=== PATIENT | male | born 1995 | race African-American/Black ===

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

== ENCOUNTER 2017-05-30 16:48 | Emergency (ER) | payer SELFPAY | END 2017-05-30 17:38 | disposition home or self-care (01) | LOC: ER 16:48 | DX: M77.51 Other enthesopathy of right foot and ankle (principal) | CPT/HCPCS: 99282 ==

== ENCOUNTER 2018-05-13 10:25 | Emergency (ER) | payer SELFPAY ==
[~2018-05-13] VITALS: Ht 172.7 cm; Wt 69.9 kg
[2018-05-13 10:25] VITALS: BP 164/85
[~2018-05-13 10:25] MED LIST: IBUP-1060 PO; NAPR500T8 PO
[2018-05-13] MEDS ORDERED: NAPROXEN 500 MG TABLET PO STA (10:40)
[2018-05-13] MEDS ORDERED: HYDROcodone/APAP 5/325MG 1 TAB TABLET PO ONE (10:45)
--- NOTE | 2018-05-13 11:16 | RAD ---
EXAM: AP, lateral and lumbosacral spot views of the lumbar spine DATE: 05/13/2018 10:44 AM INDICATION: CHRONIC LBP. INCREASED PAIN AFTER PLAYING BASKETBALL X1 DAY AGO COMPARISON: No Prior FINDINGS: Straightening of the normal lumbar lordosis. No spondylolisthesis. Vertebral body heights are preserved. Intervertebral disc heights are preserved. IMPRESSION: No evidence for acute fracture or subluxation. Electronically signed by: Clarence Breen MD (05/13/2018 11:12 AM) [facility]
--- NOTE | 2018-05-13 11:23 | PHYS DOC ---
Past Medical History Past Medical History: No Pertinent History Past Surgical History: No Surgical History Alcohol Use: None Drug Use: None Adult General Chief Complaint Chief Complaint: BACK PAIN OR INJURY HPI HPI Patient is a 23 year old male with a remote history of chronic low back pain who presents today complaining of bilateral 8 out of 10 sharp intermittent low back pain that began yesterday. Patient states he was playing basketball yesterday and during a layup he heard a snap sound from his low back. Patient denies falling. Denies any loss of bowel bladder function. Denies any pain radiating to bilateral lower extremities. Denies any loss of bowel bladder function. Review of Systems Review of Systems Constitutional: Denies fever or chills [] GI: Denies abdominal pain, nausea, vomiting, bloody stools or diarrhea [] : Denies dysuria or hematuria [] Musculoskeletal: Reports low back pain Integument: Denies rash or skin lesions [] Neurologic: Denies headache, focal weakness or sensory changes [] All other systems were reviewed and found to be within normal limits, except as documented in this note. Current Medications Current Medications Current Medications Medications (Trade) Dose Ordered Sig/Grupo Start Time Stop Time Status Last Admin Dose Admin Acetaminophen/ Hydrocodone Bitart (Lortab 5/325) 1 tab 1X ONCE 05/13/18 10:45 05/13/18 10:46 DC 05/13/18 10:49 1 TAB Naproxen (Naprosyn) 500 mg 1X STAT 05/13/18 10:40 05/13/18 10:42 DC 05/13/18 10:50 500 MG Allergies Allergies Allergies Coded Allergies Type Severity Reaction Last Updated Verified No Known Drug Allergies 06/28/16 No Physical Exam Physical Exam Constitutional: Well developed, well nourished, no acute distress, non-toxic appearance. [] Abdomen: Bowel sounds normal, soft, no tenderness, no masses, no pulsatile masses. [] Skin: Warm, dry, no erythema, no rash. [] Back: No tenderness, no CVA tenderness. Negative bilateral straight leg raises. Extremities: No tenderness, no cyanosis, no clubbing, ROM intact, no edema. [] Neurologic: Alert and oriented X 3, normal motor function, normal sensory function, no focal deficits noted. [] Psychologic: Affect normal, judgement normal, mood normal. [] Current Patient Data Vital Signs Vital Signs Date Time Temp Pulse Resp B/P (MAP) Pulse Ox O2 Delivery O2 Flow Rate FiO2 05/13/18 10:49 18 96 Room Air 05/13/18 10:25 98.2 91 164/85 (111) 98.2 EKG EKG [] Radiology/Procedures Radiology/Procedures []PROCEDURE: LUMBAR SPINE 2-3V EXAM: AP, lateral and lumbosacral spot views of the lumbar spine DATE: 05/13/2018 10:44 AM INDICATION: CHRONIC LBP. INCREASED PAIN AFTER PLAYING BASKETBALL X1 DAY AGO COMPARISON: No Prior FINDINGS: Straightening of the normal lumbar lordosis. No spondylolisthesis. Vertebral body heights are preserved. Intervertebral disc heights are preserved. IMPRESSION: No evidence for acute fracture or subluxation. Electronically signed by: Clarence Breen MD (05/13/2018 11:12 AM) [facility] DICTATED and SIGNED BY: CLARENCE BREEN MD DATE: 05/13/18 1111 Course & Med Decision Making Course & Med Decision Making Pertinent Labs and Imaging studies reviewed. (See chart for details) This is a 23-year-old male patient presented to the ED today with bilateral low back pain that began yesterday while playing basketball patient denies any known injury but he heard a snap sound. Patient has no neurological deficits. He is up and ambulating with no difficulties. Has previous history of chronic low back pain. Patient has no cauda equina syndrome symptoms. X-rays of the lumbar spine interpreted by radiologist are negative for any acute findings. Patient is in no distress. Will be discharged with cyclobenzaprine and baclofen neck. Ice elevation recommended. Follow-up with orthopedic doctor or primary care doctor in 1-2 weeks. Dragon Disclaimer Dragon Disclaimer This electronic medical record was generated, in whole or in part, using a voice recognition dictation system. Departure Departure Impression: Primary Impression: Sprain, lumbosacral Disposition: 01 HOME, SELF-CARE Condition: STABLE Referrals: NO PCP (PCP) SHAKIRA KRAFT MD follow up in 1-2 weeks Patient Instructions: Lumbosacral Strain Additional Instructions: You were evaluated in the emergency room for back pain, your lumbar spine x- rays are negative for any acute findings. Take the prescribed medications as ordered, ice and elevate the affected area. Follow-up with your doctor in 1-2 weeks. Come back to the ED at any point symptoms worsen. Scripts Naproxen (NAPROXEN) 500 Mg Tablet 1 TAB PO BID, #60 TAB 1 Refill Prov: DAVID CALLOWAY APRN 05/13/18 Cyclobenzaprine Hcl (CYCLOBENZAPRINE HCL) 10 Mg Tablet 1 TAB PO TID, #30 TAB Prov: DAVID CALLOWAY APRN 05/13/18 Problem Qualifiers Primary Impression: Sprain, lumbosacral Encounter type: initial encounter Qualified Codes: S33.5XXA - Sprain of ligaments of lumbar spine, initial encounter DAVID CALLOWAY APRN May 13, 2018 11:23
[2018-05-13] MEDS ORDERED: NAPR-514 PO (11:27)
[2018-05-13] MEDS ORDERED: CYCL10TA2 PO (11:27)
== END 2018-05-13 11:41 | disposition home or self-care (01) ==
LOC: ER 10:25 → EDBD 10:25 → ER 11:41
DX: S33.5XXA Sprain of ligaments of lumbar spine, initial encounter (principal); X58.XXXA Exposure to other specified factors, initial encounter; Y93.67 Activity, basketball; Y92.89 Other specified places as the place of occurrence of the external cause; Y99.8 Other external cause status
CPT/HCPCS: 72100; 99283